=== PATIENT | female | born 1980 | race Caucasian/White ===

== ENCOUNTER 2021-11-28 09:54 | Emergency (ER) | payer OTHER, SELFPAY ==
--- NOTE | ~2021-11-28 | XR_ITS ---
EXAMINATION: XR chest 2V DATE: 11/28/2021 10:37 INDICATION: Productive cough TECHNIQUE: Frontal and lateral views of the chest are obtained COMPARISON: None available FINDINGS: The lungs are free of acute opacities. No pleural effusion or pneumothorax. The cardiomedia stinal silhouette is normal. There is mild thoracic spondylosis. A gastric lap band is noted. IMPRESSION: 1. No acute cardiopulmonary abnormality. Reviewed, dictated and finalized at location B.
[2021-11-28 10:02] VITALS: BP 179/85; PULSE 86; RESP 20; TEMP 36.8; O2SAT 100
--- NOTE | 2021-11-28 10:44 | ED.URI ---
HPI - URI/Sore Throat General Chief Complaint: Upper Respiratory Infection Stated Complaint: Cough Time Seen by Provider: 11/28/21 10:44 Source: patient and RN notes reviewed Mode of arrival: ambulatory Limitations: no limitations History of Present Illness HPI Narrative: 41-year-old female presented for complaint of nonproductive cough since September of this year. She endorses shortness of breath and cough is worse at night, having coughing fits that lead to urinary incontinence. She is a daily 1 pack/day smoker since age 10. She denies associated nausea, vomiting, wheezing, dizziness, fevers or chills. She is not taking anything for symptoms, stating she has minimal findings. She denies sick contacts. States she was advised by her GI specialist to f/u with pulm due to frequent coughing during EGD and large amount of mucous in the stomach. MD elicited complaint: cough Related Data Home Medications Medication Instructions Recorded Confirmed amlodipine 10 mg tablet 10 mg PO DAILY 11/28/21 11/28/21 atorvastatin 10 mg tablet 10 mg PO DAILY 11/28/21 11/28/21 fluticasone propionate 50 2 spray intranasal DAILY 11/28/21 11/28/21 mcg/actuation nasal spray,suspension Allergies Allergy/AdvReac Type Severity Reaction Status Date / Time tramadol Allergy Intermediate Rash Verified 11/28/21 10:25 Review of Systems Review of Systems: CONSTITUTIONAL: Denies malaise, chills, sweats, fever EYES: Denies visual changes, redness, or discharge ENT: Reports rhinorrhea, congestion, denies sinus pain, otalgia, sore throat CARDIOVASCULAR: Denies chest pain, palpitations, edema RESPIRATORY: Reports cough, post nasal drainage. GASTROINTESTINAL: Denies abdominal pain, nausea, vomiting, diarrhea SKIN: Denies rash or itching MUSCULOSKELETAL: denies myalgia NEUROLOGIC: Denies headache Exam Narrative: GENERAL: well-appearing EYES: conjunctivae clear ENT: Mucous membranes moist. TM pearly madrigal with dull light reflex bilaterally; no tragal tenderness. Oropharynx erythematous without lesions or exudate, no drooling, no hoarseness, no trismus, uvula midline. NECK: Supple. No lymphadenopathy CHEST: Clear to auscultation, breath sounds equal. No wheezing, rhonchi, rales, or stridor. No respiratory distress, speaks in full sentences. HEART: Regular rate and rhythm. No murmur heard. SKIN: Warm, dry, no rash. NEURO: Alert and oriented x3. PSYCH: Normal mood and affect Course Course Emergency Course: Patient is aware of diagnosis, understands and agrees to treatment plan. Anticipatory guidance given. Patient agrees to follow-up as directed and is aware of reasons to seek care at the emergency department. Portions of this record may have been created with voice recognition software Level of Care: Express Care Visit Vital Signs Vital signs: Vital Signs Temperature 98.2 F 11/28/21 10:02 Pulse Rate 86 11/28/21 10:02 Respiratory Rate 20 11/28/21 10:02 Blood Pressure 179/85 H 11/28/21 10:02 Pulse Oximetry 100 11/28/21 10:02 Oxygen Delivery Room Air 11/28/21 10:02 Temperature 98.2 F 11/28/21 10:02 Pulse Rate 86 11/28/21 10:02 Respiratory Rate 20 11/28/21 10:02 Blood Pressure 179/85 H 11/28/21 10:02 Pulse Oximetry 100 11/28/21 10:02 Oxygen Delivery Room Air 11/28/21 10:02 reviewed MDM - URI/Sore Throat MDM Narrative Medical decision making narrative: CXR reviewed with patient. Advised supportive measures and signs/symptoms to go to the ER. 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 Plans to f/u with pulm as recommended and will see pcp as scheduled in Dec. Pt is appropriate for outpt treatment and f/u. Differential Diagnosis Differential diagnosis: Likely upper respiratory infection, sinusitis and viral infection Imaging Data Radiologist's impression: Patient: Mari Rudolph : 1980 MR#: [id number]
== END 2021-11-28 11:00 | disposition home or self-care (01) ==
PROVIDERS: Emergency Provider Nurse Practitioner Family
DX: J06.9 Acute upper respiratory infection, unspecified (principal); F17.200 Nicotine dependence, unspecified, uncomplicated
CPT/HCPCS: 71046; 99213; G0463

== ENCOUNTER 2023-05-31 10:13 | Emergency (ER) | payer OTHER, SELFPAY ==
[2023-05-31 10:20] VITALS: BP 146/91; PULSE 98; RESP 18; O2SAT 98
--- NOTE | 2023-05-31 10:47 | ED.URI ---
HPI - URI/Sore Throat General Chief Complaint: Upper Respiratory Infection Stated Complaint: sinus pressure/ears Time Seen by Provider: 05/31/23 10:48 Source: patient, RN notes reviewed and old records reviewed Mode of arrival: ambulatory Limitations: no limitations History of Present Illness HPI Narrative: 42 year old female who presents to [facility] care with complaint of sinus congestion, headache, left ear pain and pressure,cough. and post nasal drainage for the past 3 days. Patient denies any shortness of breath or any nausea or vomiting. Patient reports that she has had sinus surgery in the past and has had sinus infections and seasonal allergies. Patient has taken Benadryl ,Flonase nasal spray and ued nasal saline and Mucinex for her symptoms. MD elicited complaint: cough, rhinorrhea, nasal congestion, sinus pain and other Pertinent past history: sinusitis, seasonal allergies and other (tobacco use) Onset (ago): day(s) (3) Pain scale (0-10): 8 Able to tolerate fluids by mouth: Yes Treatments prior to arrival: other (saline spray,Flonase, Benadryl, Mucinex) Related Data Home Medications Medication Instructions Recorded Confirmed atorvastatin 10 mg tablet 10 mg PO DAILY 11/28/21 05/31/23 fluticasone propionate 50 2 spray intranasal DAILY 11/28/21 05/31/23 mcg/actuation nasal spray,suspension bupropion HCl 300 mg 24 hr tablet, 300 mg PO DAILY 05/31/23 05/31/23 extended release divalproex 500 mg tablet,delayed See Rx Instructions .Route .COMPLEX 05/31/23 05/31/23 release fluoxetine 40 mg capsule 80 mg PO DAILY 05/31/23 05/31/23 lisinopril 20 mg tablet 20 mg PO BID 05/31/23 05/31/23 metformin 850 mg tablet 850 mg PO BID 05/31/23 05/31/23 prazosin 2 mg capsule 2 mg PO HS 05/31/23 05/31/23 quetiapine 50 mg tablet,extended 100 mg PO HS 05/31/23 05/31/23 release 24 hr Allergies Allergy/AdvReac Type Severity Reaction Status Date / Time tramadol Allergy Intermediate Rash Verified 05/31/23 10:24 Review of Systems Review of Systems: CONSTITUTIONAL: Reports malaise, no chills, sweats, or fever. EYES: Denies visual changes, redness, or discharge. ENT: Reports rhinorrhea, congestion, sinus pain, left otalgia and no sore throat. CARDIOVASCULAR: Denies chest pain, palpitations, or edema. RESPIRATORY: Reports cough.? Denies dyspnea. GASTROINTESTINAL: Denies abdominal pain, nausea, vomiting, diarrhea SKIN: Denies rash or itching. MUSCULOSKELETAL: Denies myalgia. NEUROLOGIC: Positive headache. All systems reviewed & are unremarkable except as noted in HPI and below PMFSH Past Medical History Medical History (Updated 06/02/23 @ 07:46 by Rehana Coombs NP) Anxiety and depression Bipolar disorder History of sinus problem Hyperlipidemia Hypertension Pneumonia Surgical History Surgical History (Updated 06/02/23 @ 07:45 by Rehana Coombs NP) H/O sinus surgery H/O tubal ligation History of laparoscopic adjustable gastric banding Previous section Social History Social History (Updated 06/02/23 @ 07:41 by Rehana Coombs NP) Smoking packs per day: 1 Smoking cigarettes per day: 20.0 Smoking status: Current every day smoker Tobacco type: cigarettes Alcohol intake: current Alcohol use details: social Substance use type: does not use Living arrangements: with family Gender identity (if verbalized by the patient): Female Comments At time of signature, agree with nursing past medical, surgical, social and family history. There is no relevant family history pertinent to the presenting complaint Exam Narrative: GENERAL: Well-appearing, well-nourished, and in no acute distress. HEAD: Normocephalic EYES: PERRLA, conjunctivae clear ENT: Nares clear, turbinates edematous and erythematous, clear yellowish discharge.headache Mucous membranes moist.Left TM red, Right TM pearly madrigal with dull light reflex; no tragal tenderness. Oropharynx erythematous withou
== END 2023-05-31 11:00 | disposition home or self-care (01) ==
PROVIDERS: Emergency Provider Registered Nurse
DX: H66.92 Otitis media, unspecified, left ear (principal); J06.9 Acute upper respiratory infection, unspecified; F17.210 Nicotine dependence, cigarettes, uncomplicated; E78.5 Hyperlipidemia, unspecified; I10 Essential (primary) hypertension; F41.9 Anxiety disorder, unspecified; F32.A Depression, unspecified
CPT/HCPCS: 99213; G0463

== ENCOUNTER 2023-06-16 11:44 | Emergency (ER) | payer OTHER, SELFPAY ==
[2023-06-16 11:50] VITALS: BP 140/81; PULSE 66; RESP 20; TEMP 37.1; O2SAT 100
--- NOTE | 2023-06-16 12:05 | ED.EAR ---
HPI - Ear Problem General Chief complaint: Ear Stated complaint: Left Ear Problem Time Seen by Provider: 06/16/23 12:00 Source: patient, RN notes reviewed and old records reviewed Mode of arrival: ambulatory Limitations: no limitations History of Present Illness HPI Narrative: Patient presents today complaining of bilateral ear pressure, left greater than right. Patient was seen here at [facility] on 05/31/23 and given a 10 day prescription of Augmentin for sinus symptoms and left otitis media, which she has finished. She was also taking allergy medication at time. States remainder of her symptoms have improved or resolved, but her ear symptoms have persisted. Related Data Home Medications Medication Instructions Recorded Confirmed atorvastatin 10 mg tablet 10 mg PO DAILY 11/28/21 05/31/23 bupropion HCl 300 mg 24 hr tablet, 300 mg PO DAILY 05/31/23 05/31/23 extended release divalproex 500 mg tablet,delayed See Rx Instructions .Route .COMPLEX 05/31/23 05/31/23 release fluoxetine 40 mg capsule 80 mg PO DAILY 05/31/23 05/31/23 lisinopril 20 mg tablet 20 mg PO BID 05/31/23 05/31/23 metformin 850 mg tablet 850 mg PO BID 05/31/23 05/31/23 prazosin 2 mg capsule 2 mg PO HS 05/31/23 05/31/23 quetiapine 50 mg tablet,extended 100 mg PO HS 05/31/23 05/31/23 release 24 hr Allergies Allergy/AdvReac Type Severity Reaction Status Date / Time tramadol Allergy Intermediate Rash Verified 05/31/23 10:24 Review of Systems Review of Systems: CONSTITUTIONAL: Denies body aches, fever, chills, or sweats. EYES: Denies visual changes, redness, or discharge. ENT: Denies rhinorrhea, congestion, sore throat.+ bilateral ear pressure CARDIOVASCULAR: Denies chest pain, palpitations, or edema. RESPIRATORY: Denies cough or dyspnea. GASTROINTESTINAL: Denies abdominal pain, nausea, vomiting, or diarrhea. GENITOURINARY: Denies dysuria or hematuria. SKIN: Denies rash, itching, or wounds. MUSCULOSKELETAL: Denies back pain, joint pain, or myalgia. NEUROLOGIC: Denies headache, numbness, tingling, or weakness. PSYCH: Denies depression or anxiety. [facility] Past Medical History Medical History Anxiety and depression Bipolar disorder History of sinus problem Hyperlipidemia Hypertension Pneumonia Surgical History Surgical History H/O sinus surgery H/O tubal ligation History of laparoscopic adjustable gastric banding Previous section Social History Social History Smoking packs per day: 1 Smoking cigarettes per day: 20.0 Smoking status: Current every day smoker Tobacco type: cigarettes Alcohol intake: current Alcohol use details: social Substance use type: does not use Living arrangements: with family Gender identity (if verbalized by the patient): Female Comments At time of signature, I have reviewed and agree with nursing past medical, surgical, social and family history unless otherwise noted. Please see nursing chart for further information. There is no relevant family history pertinent to the presenting complaint Exam Narrative: GENERAL: Well-appearing, well-nourished, and in no acute distress. HEAD: Normocephalic, atraumatic. EYES: EOMI. No redness or drainage. Conjunctivae normal. ENT: Mucous membranes pink and moist. Nares clear. No rhinorrhea. Bilateral middle ear effusions without evidence of bacterial infection. NECK: Normal AROM. Supple. No lymphadenopathy. CHEST: No respiratory distress. EXTREMITIES: Normal range of motion. SKIN: Warm, dry, no rash. Capillary refill normal. NEURO: No focal deficits. Alert and oriented x3. Gait steady. PSYCH: Normal affect. No signs of depression or anxiety. Course Course Level of Care: Express Care Visit Vital Signs Vital signs: Vital Signs Temperatu
== END 2023-06-16 12:14 | disposition home or self-care (01) ==
PROVIDERS: Emergency Provider Nurse Practitioner
DX: H65.03 Acute serous otitis media, bilateral (principal); F17.210 Nicotine dependence, cigarettes, uncomplicated; E78.5 Hyperlipidemia, unspecified; I10 Essential (primary) hypertension; F41.9 Anxiety disorder, unspecified; F31.9 Bipolar disorder, unspecified
CPT/HCPCS: 99213; G0463

== ENCOUNTER 2023-09-25 14:26 | Emergency (ER) | payer OTHER, SELFPAY ==
[2023-09-25 14:30] VITALS: BP 130/76; PULSE 70; RESP 20; TEMP 37.1; O2SAT 98
--- NOTE | 2023-09-25 14:57 | ED.SKABFB ---
HPI - Skin/Abscess/Foreign Bdy General Chief complaint: Skin/Abscess/Foreign Body Stated complaint: left leg abcess/or bite History of Present Illness HPI narrative: pt is a 43 y/o female, presents to with a wound to the left groin, notice 4 days ago as a sore area that she thought might be a spider bite, as she was cleaned out an area that was infested with spiders and snakes. The area became increasingly more tender with a pustule present. She opened the pustule today at home and it drained foul smelling discharge. The area is now feeling slightly better however, she feels she likely requires abx therapy, prompting her visit. Her tetanus is UTD. 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 Related Data Home Medications Medication Instructions Recorded Confirmed atorvastatin 10 mg tablet 10 mg PO DAILY 11/28/21 05/31/23 bupropion HCl 300 mg 24 hr tablet, 300 mg PO DAILY 05/31/23 05/31/23 extended release divalproex 500 mg tablet,delayed See Rx Instructions .Route .COMPLEX 05/31/23 05/31/23 release fluoxetine 40 mg capsule 80 mg PO DAILY 05/31/23 05/31/23 lisinopril 20 mg tablet 20 mg PO BID 05/31/23 05/31/23 metformin 850 mg tablet 850 mg PO BID 05/31/23 05/31/23 prazosin 2 mg capsule 2 mg PO HS 05/31/23 05/31/23 quetiapine 50 mg tablet,extended 100 mg PO HS 05/31/23 05/31/23 release 24 hr Allergies Allergy/AdvReac Type Severity Reaction Status Date / Time tramadol Allergy Intermediate Rash Verified 09/25/23 14:44 Review of Systems Integumentary/Breasts: Comments: refer to [facility] Past Medical History Medical History Anxiety and depression Bipolar disorder History of sinus problem Hyperlipidemia Hypertension Pneumonia Surgical History Surgical History H/O sinus surgery H/O tubal ligation History of laparoscopic adjustable gastric banding Previous section Social History Social History Smoking packs per day: 1 Smoking cigarettes per day: 20.0 Smoking status: Current every day smoker Tobacco type: cigarettes Alcohol intake: current Alcohol use details: social Substance use type: does not use Living arrangements: with family Gender identity (if verbalized by the patient): Female Exam Const: General: healthy appearing and no acute distress Nutritional Appearance: obese Limitations: no limitations HENMT: Head: normal to inspection Ears: external ears normal Face/Nose/Sinus: Normal external nose present Face and sinus: normal facial exam Mouth: Yes Normal oral and palatal mucosa present Throat: posterior oropharynx normal Eyes: Conjunctivae: conjunctivae normal Pupils: Equal, round and reactive pupils present EOM: EOMs intact bilaterally Direct Ophthalmoscopy: no photophobia Neck: Neck: normal visual inspection, no lymphadenopathy and no meningeal signs Chest: Chest palpation & inspection: normal inspection of the chest Resp: Effort & Inspection: normal respiratory effort Auscultation: clear to auscultation bilaterally Cardio: Rate: regular rate Rhythm: regular rhythm Skin: General skin exam: normal color Wounds: wounds noted Other: pt has an ulcerated lesion to the left proximal thigh, 3 cm inferior to the left inguinal skin fold. there is scant light pink erythema surrounding. The lesion is 1 cm and linear. no active bleeding or drainage noted. The wound margin has dark purple ecchymosis present. No escar noted. The wound bed is yellow pink in color. No visible necrosis or lymphangitis noted. No significant left inguinal lymphadenopathy noted Course Course Emergency Course: no active wound drainage present for culture. Elvis de jesus
== END 2023-09-25 15:11 | disposition home or self-care (01) ==
PROVIDERS: Emergency Provider Nurse Practitioner Family
DX: L02.214 Cutaneous abscess of groin (principal); F17.210 Nicotine dependence, cigarettes, uncomplicated; E78.5 Hyperlipidemia, unspecified; I10 Essential (primary) hypertension; F41.9 Anxiety disorder, unspecified; F31.9 Bipolar disorder, unspecified; Z86.14 Personal history of Methicillin resistant Staphylococcus aureus infection
CPT/HCPCS: 99213; G0463